=== PATIENT | female | born 1970 | race Caucasian/White ===

== ENCOUNTER 2017-10-14 18:03 | Emergency (ER) | payer OTHER ==
[~2017-10-14] VITALS: Ht 162.6 cm; Wt 72.6 kg
[~2017-10-14 18:03] MED LIST: FLEXERIL10 MG PO; MOTRIN 600 MG600 MG PO; PERCOCET 325 MG1 TA2 PO; ZOFRAN4 M1 SL
[2017-10-14 19:33] LABS: ABSOLUTE BASOPHIL COUNT 0.1 /CUMM (0.0-0.2); ABSOLUTE EOSINOPHIL COUNT 0.3 /CUMM (0.0-0.7); ABSOLUTE GRANULOCYTE CT 4.9 /CUMM (1.4-6.5); ABSOLUTE LYMPH COUNT 2.6 /CUMM (1.2-3.4); ABSOLUTE MONOCYTE COUNT 0.7 /CUMM (0.10-0.60); EOSINOPHIL % 3.2 % (0-5); GRANULOCYTE % 56.8 % (42.2-75.2); HEMATOCRIT 40.3 % (37-47); MEAN CORPUSCULAR HGB 32.7 PG (27.0-31.0); MEAN CORPUSCULAR HGB CONC 34.7 G/DL (33.0-37.0); MEAN CORPUSCULAR VOLUME 94.2 FL (81.0-99.0); MEAN PLATELET VOLUME 9.9 FL (7.4-10.4); PLATELET COUNT 227 /CUMM (130-400); RBC DISTRIBUTION WIDTH 13.4 % (11.5-14.5); RED BLOOD CELL CT 4.27 /CUMM (4.20-5.40); WHITE BLOOD CELL COUNT 8.7 /CUMM (4.8-10.8)
--- NOTE | 2017-10-14 20:12 | CT SCAN REPORT ---
EXAMINATION: CT ABDOMEN AND PELVIS WITH CONTRAST CLINICAL INFORMATION: Right lower quadrant pain. COMPARISON: X-rays of the abdomen November [address] scan of the abdomen and pelvis September 2011. TECHNIQUE: Multidetector volumetric imaging was performed of the abdomen and pelvis following IV administration of 95 mL of Omnipaque 300 intravenous contrast. Sagittal and coronal reformatted images were obtained on the technologist's workstation. DLP: 391.72 mGy-cm FINDINGS: LUNG BASES: The visualized lung bases are unremarkable. LIVER, GALLBLADDER, AND BILIARY TREE: There is a 6.2 cm transverse and 5.4 cm AP cyst in the lateral aspect of the right lobe of the liver slightly increased in size compared to previous measuring of 4.4 x 3.4 cm. The gallbladder is unremarkable with no evidence of radiopaque gallstones, gallbladder wall thickening, or obvious pericholecystic inflammatory changes. PANCREAS: Unremarkable. SPLEEN: Unremarkable. ADRENAL GLANDS: Unremarkable. KIDNEYS AND URETERS: The kidneys are normal in size, shape, and attenuation. No hydronephrosis, hydroureter, or calculi seen. No perinephric stranding. BLADDER: Unremarkable. GASTROINTESTINAL TRACT: Appendix normal. Large bowel normal. Small bowel normal. Stomach normal. ABDOMINAL WALL: No significant hernia is appreciated. LYMPH NODES: Normal. VASCULAR: Unremarkable. PELVIC VISCERA: Unremarkable. OSSEOUS STRUCTURES: There is spondylosis of the lumbosacral spine with degenerative disc changes present at L5-S1 similar to prior. IMPRESSION: 1. No acute abnormality. 2. Appendix normal 3. Slight increase in size in the right liver cyst. 4. Spondylosis of the lumbosacral spine.
--- NOTE | 2017-10-14 21:17 | ED GI/GU/ABDOMINAL COMPLAINT ---
History of Present Illness General Chief Complaint: Abdominal Pain/Flank Pain Stated Complaint: ABD PAIN Source: patient Exam Limitations: no limitations Vital Signs & Intake/Output Vital Signs & Intake/Output Vital Signs Date Time Temp Pulse Resp B/P B/P Pulse O2 O2 Flow FiO2 Mean Ox Delivery Rate 10/14 2157 97.5 82 19 130/81 99 Room Air 10/14 1805 96.0 93 15 122/78 97 Room Air Room Air Allergies Coded Allergies: MDX - Metoclopramide (From REGLAN) (Intermediate, PANIC ATTACK 10/14/17) Reconcile Medications CYCLOBENZAPRINE HCL (Flexeril) 10 MG TAB 1 TAB PO TID PRN PAIN Ibuprofen (Motrin 600 MG Tab) 600 MG TAB 1 TAB PO Q6P PRN PAIN Meloxicam (Mobic) 15 MG TABLET 1 TAB PO DAILY PRN PAIN Ondansetron (Zofran Odt) 4 MG ODT 1 ODT SL Q6P PRN NAUSEA Ondansetron HCl (Zofran) 4 MG TABLET 1 TAB PO Q6-8P PRN NAUSEA OXYCODONE HCL/ACETAMINOPHEN (Percocet 5-325 MG Tablet) 325 MG/5 MG TAB 1-2 TAB PO Q4-6 PRN PRN severe pain Tylenol With Codeine (Tylenol With Codeine #3 Tablet) 300 MG-30 MG TABLET 1 TAB PO BIDP PRN PAIN 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 PT HAS HAD R ABD PAIN THAT WRAPS AROUND TO BACK X 3 DAYS. POOR PO INTAKE. +NAUSEA. Triage Nurses Notes Reviewed? yes ? n Is pt currently ? No Duration: constant Timing: recent history Quality/Severity: moderate Severity Numbers: 5 Location: right lower quadrant Radiation: no radiation HPI: Patient is a 47-year-old female who presents emergent with concerns of gradual onset of right lower quadrant abdominal pain for the past 4 days however nausea that began today patient was able tolerate by mouth with no change in symptoms, denies any fever chills chest pain shortness of breath arm pain jaw pain back pain and dysuria and hematuria. Patient does admit to me privately that she is concerned that her cheated on her and admitted this and has since had vaginal white discharge for 1 day Denies any dyspareunia, (Michael Swanson) Past History Travel History Traveled to [place] past 21 day No Medical History Any Pertinent Medical History? 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 No (Michael Swanson) Review of Systems Review of Systems Constitutional: Reports: no symptoms. EENTM: Reports: no symptoms. Respiratory: Reports: no symptoms. Cardiovascular: Reports: no symptoms. GI: Reports: see HPI, abdominal pain. Genitourinary: Reports: see HPI. Musculoskeletal: Reports: no symptoms. Skin: Reports: no symptoms. Neurological/Psychological: Reports: no symptoms. Hematologic/Endocrine: Reports: no symptoms. Immunologic/Allergic: Reports: no symptoms. All Other Systems: Reviewed and Negative (Michael Swanson) Physical Exam Physical Exam General Appearance: no apparent distress, alert, obese Head: atraumatic Eyes: Bilateral: normal appearance. Ears, Nose, Throat, Mouth: moist mucous membrane Neck: normal inspection Cardiovascular: regular rate/rhythm Gastrointestinal: normal bowel sounds, soft, MILD RLQ/PELVIC PAIN NO PERITONEAL SIGNS. Pelvic: normal external exam, normal speculum exam, no cerv. motion tender, no masses, MILD WHITE CERVIX DISCHARGE Extremities: normal range of motion Neurologic/Psych: no motor/sensory deficits, awake Skin: intact, normal color, warm/dry Core Measures ACS in differential dx? No Sepsis Present: No Sepsis Focused Exam Completed? No (Michael Swanson) Progress Differential Diagnosis: AAA, AMI, appendicitis, biliary colic, bowel obstruction , colon cancer, cholecystitis, diverticulitis, endometritis, esophageal varices, gastritis, hepatitis, hernia, hemorrhoids, ischemic bowel, inflamm bowel dis, kidney stone, ovarian cyst, ovarian torsion, pancreatitis, PID/cervicitis, peptic ulcer, PUD/GERD, perforated viscous, SBO, UTI/pyelo Plan of Care: Orders Procedure Date/time Status TRICHOMONAS 10/14 2138 Complete POTASSIUM HYDROXIDE (HUONG) 10/14 2138 Complete GENITAL CULTURE 10/14 2138 Active CHLAMYDIA-GC DNA PROBE 10/14 2138 Active Saline Lock 10/14 1809 Active URINALYSIS 10/14 1809 Complete HUMAN BETA HCG SCREEN 10/14 1809 Complete COMPREHENSIVE METABOLIC PANEL 10/14 1809 Complete CBC WITHOUT DIFFERENTIAL 10/14 1809 Complete Current Medications Sig/Bozena Start time Last Medication Dose Stop Time Status Admin Ceftriaxone Sodium 250 MG ONCE ONE 10/14 2244 CAN (Rocephin) 10/14 2245 Laboratory Tests 10/14/172128: Urine Color YEL, Urine Clarity CLEAR, Urine pH 6.0, Ur Specific Newton 1.010, Urine Protein NEG, Urine Ketones NEG, Urine Nitrite NEG, Urine Bilirubin NEG, Urine Urobilinogen 0.2, Ur Leukocyte Esterase NEG, Ur Microscopic EXAM NOT REQUIRED, Urine Hemoglobin NEG, Urine Glucose NEG 10/14/17 1843: Anion Gap 12, Estimated GFR > 60, BUN/Creatinine Ratio 18.6, Glucose 85, Calcium 9.5, Total Bilirubin 0.2, AST 25, ALT 40, Alkaline Phosphatase 84, Total Protein 6.9, Albumin 4.4, Globulin 2.5, Albumin/Globulin Ratio 1.8, Total Beta HCG NEGATIVE, CBC w Diff NO MAN DIFF REQ, RBC 4.27, MCV 94.2, MCH 32.7 H, MCHC 34.7 , RDW 13.4, MPV 9.9, Gran % 56.8, Lymphocytes % 30.4, Monocytes % 8.6, Eosinophils % 3.2, Basophils % 1.0, Absolute Granulocytes 4.9, Absolute Lymphocytes 2.6, Absolute Monocytes 0.7 H, Absolute Eosinophils 0.3, Absolute Basophils 0.1 Microbiology 10/14 2229 GENITAL: GC DNA Probe - RECD 10/14 2229 GENITAL: Chlamydia DNA Probe (HAN) - RECD 10/14 2229 GENITAL: HUONG Preparation - COMP 10/14 2229 GENITAL: Trichomonas Preparation - COMP 10/14 2229 GENITAL: Genital Culture - RECD On initial examination patient resting comfortably at bedside patient has unremarkable blood work and CT scan patient was administered prophylactic gonorrhea and chlamydia treatment Cultures currently pending strongly advised patient that if positive to have OTHER PARTIES tested and treated DISCUSSED WITH PT TO CALL ER IN 1-2 DAYS FOR RESULTS. Diagnostic Imaging: Viewed by Me: CT Scan. Radiology Impression: no acute abnormality, no fracture Initial ED EKG: none Comments: PATIENT: JUDITH ALEJO PRESENT AGE: 47 PATIENT ACCOUNT NO: [id number] : 68 LOCATION: [facility] ORDERING PHYSICIAN: Dean Arreaga DO SERVICE DATE: 10/14/17 EXAM TYPE: CAT - CT ABD & PELVIS W IV CONTRAST EXAMINATION: CT ABDOMEN AND PELVIS WITH CONTRAST CLINICAL INFORMATION: Right lower quadrant pain. COMPARISON: X-rays of the abdomen November [address] scan of the abdomen and pelvis September 2011. TECHNIQUE: Multidetector volumetric imaging was performed of the abdomen and pelvis following IV administration of 95 mL of Omnipaque 300 intravenous contrast. Sagittal and coronal reformatted images were obtained on the technologist's workstation. DLP: 391.72 mGy-cm FINDINGS: LUNG BASES: The visualized lung bases are unremarkable. LIVER, GALLBLADDER, AND BILIARY TREE: There is a 6.2 cm transverse and 5.4 cm AP cyst in the lateral aspect of the right lobe of the liver slightly increased in size compared to previous measuring of 4.4 x 3.4 cm. The gallbladder is unremarkable with no evidence of radiopaque gallstones, gallbladder wall thickening, or obvious pericholecystic inflammatory changes. PANCREAS: Unremarkable. SPLEEN: Unremarkable. ADRENAL GLANDS: Unremarkable. KIDNEYS AND URETERS: The kidneys are normal in size, shape, and attenuation. No hydronephrosis, hydroureter, or calculi seen. No perinephric stranding. BLADDER: Unremarkable. GASTROINTESTINAL TRACT: Appendix normal. Large bowel normal. Small bowel normal. Stomach normal. ABDOMINAL WALL: No significant hernia is appreciated. LYMPH NODES: Normal. VASCULAR: Unremarkable. PELVIC VISCERA: Unremarkable. OSSEOUS STRUCTURES: There is spondylosis of the lumbosacral spine with degenerative disc changes present at L5-S1 similar to prior. IMPRESSION: 1. No acute abnormality. 2. Appendix normal 3. Slight increase in size in the right liver cyst. 4. Spondylosis of the lumbosacral spine. 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 I have also reviewed all the pertinent lab results and diagnostic results. I agree with the findings and the plan of care as documented in the PA's/MANAGER TRAINING's documentation. x I have reviewed the ED Record and agree with the PA's/MANAGER TRAINING's documentation. [] Additions or exceptions (if any) to the PAs/MANAGER TRAINING's note and plan are summarized below: [] (Harriet STAUFFER,Jacob)
[2017-10-14 21:57] VITALS: BP 130/81
[2017-10-14] MEDS ORDERED: MOBIC15 M1 PO (22:48)
[2017-10-14] MEDS ORDERED: ZOFRAN4 M2 PO (22:48)
[2017-10-14] MEDS ORDERED: TYLENOL WITH C1 EACH PO (22:52)
== END 2017-10-14 23:14 ==
LOC: ERH 18:03
PROVIDERS: Emergency Medicine
DX: A64 Unspecified sexually transmitted disease (principal)
CPT/HCPCS: 87070; 74177; 81003; 87491; 87591; 96374; 96375; J0696; J1885; J2405; J3101